=== PATIENT | female | born 2000 | race Hispanic/Latino ===

== ENCOUNTER 2024-08-21 19:09 | Emergency (ER) | payer MEDICAID ==
[~2024-08-21] VITALS: Ht 160 cm; Wt 65.0 kg
[2024-08-21] MEDS ORDERED: ONDANSETRON 4 MG/TAB ODT PO ONE (19:15)
[2024-08-21] MEDS ORDERED: ZOFRAN4 MG/TAB PO (19:55)
[2024-08-21 20:28] VITALS: BP 125/75
== END 2024-08-21 20:28 | disposition home or self-care (01) ==
LOC: ED 19:09
DX: R11.2 Nausea with vomiting, unspecified (principal); R19.7 Diarrhea, unspecified

== ENCOUNTER 2024-08-27 21:31 | Emergency (ER) | payer MEDICAID ==
[~2024-08-27] VITALS: Ht 160 cm; Wt 65.0 kg
[~2024-08-27 21:31] MED LIST: ZOFRAN4 MG/TAB PO
[2024-08-27] MEDS ORDERED: Barium Sulfate (Readi-Cat 2 Berry) 450 ML/BTL PO ONE (23:00)
[2024-08-27] MEDS ORDERED: Barium Sulfate (Readi-Cat 2 Banana) 450 ML/BTL PO ONE (23:00)
[2024-08-27] MEDS ORDERED: DIATRIZOATE MEGLUMINE & SODIUM 30 ML/BTL PO ONE (23:00)
[2024-08-27] MEDS ORDERED: KETOROLAC TROMETHAMINE 30 MG/ML SDV IV ONE (23:05)
[2024-08-27] MEDS ORDERED: PHENAZOPYRIDINE HCL 100 MG/TAB PO ONE (23:05)
[2024-08-27 23:14] LABS: BASO% 0.2 % (0-3); EOS% 1.2 % (0-8); HEMATOCRIT 37.9 % (37.0-47.0); HEMOGLOBIN 12.3 g/dl (12.0-16.0); LYMPH% 28.4 % (15-41); MEAN CELL VOLUME 85.4 fL CALC (80.0-100.0); MEAN CORPUSCULAR HGB 27.7 pG CALC (26.0-32.0); MEAN CORPUSCULAR HGB CONC 32.5 g/dL CAL (32.0-36.0); MONO% 6.5 % (2-13); NEUT# 3.84 thou/uL (2.00-7.15); NEUT% 63.7 % (42-76); RED BLOOD COUNT 4.44 mill/uL (4.20-5.60); RED CELL DISTRI WIDTH 12.5 % (11.5-15.5)
[2024-08-27] MEDS ORDERED: TETRACAINE HCL 0.5 %/4 ML SOL OD ONE (23:15)
[2024-08-27] MEDS ORDERED: FLUORESCEIN SODIUM 1 MG EA OS ONE (23:15)
[2024-08-27 23:18] LABS: URINE BLOOD DIPSTICK Large (NEGATIVE); URINE COLOR Yellow; URINE GLUCOSE - DIPSTICK Negative (NEGATIVE); URINE KETONE 40 mg/dL (NEGATIVE); URINE NITRITE - DIPSTICK Negative (Negative); URINE PROTEIN - DIPSTICK >=300 mg/dL (NEG-TRACE); URINE SPECIFIC GRAVITY >=1.030; URINE UROBILINOGEN - DIPSTICK 0.2 E.U./dL (0.2)
[2024-08-27 23:24] LABS: URINE LEUK ESTERASE Trace (NEGATIVE); URINE RBC >100 RBC/hpf (0-5)
[2024-08-27 23:25] LABS: URINE BACTERIA MODERATE hpf; URINE EPITHELIAL CELLS MODERATE EPI/hpf (0-FEW)
[2024-08-27 23:35] LABS: ALBUMIN 4.2 g/dL (3.2-5.0); BILIRUBIN, TOTAL 0.3 mg/dL (0.02-1.3); CREATININE 0.8 mg/dL (0.5-1.0); POTASSIUM 3.9 mmol/l (3.5-5.1); TOTAL PROTEIN 7.2 g/dL (6.3-8.2)
[2024-08-28] MEDS ORDERED: DICYCLOMINE HCL 10 MG/CAP PO ONE (02:05)
[2024-08-28] MEDS ORDERED: ERYTHROMYCIN OPTHALMIC 5 MG/GM TUBE OS ONE (02:05)
[2024-08-28] MEDS ORDERED: ACETAMINOPHEN 500 MG TAB PO ONE (02:05)
[2024-08-28] MEDS ORDERED: POLYMYXIN B SUL1 SOL OS (05:29)
[2024-08-28 05:40] VITALS: BP 118/82
== END 2024-08-28 05:42 | disposition home or self-care (01) ==
LOC: ED 21:31
PROVIDERS: Internal Medicine
DX: R30.0 Dysuria (principal); N83.201 Unspecified ovarian cyst, right side